=== PATIENT | male | born 1960 | race Caucasian/White ===

== ENCOUNTER 2016-08-27 11:41 | Emergency (ER) | payer OTHER ==
[~2016-08-27] VITALS: Ht 180.3 cm; Wt 84.8 kg
[2016-08-27 11:46] VITALS: BP 144/74
== END 2016-08-27 15:36 | disposition home or self-care (01) ==
LOC: ED 15:13
DX: S82.875A Nondisplaced pilon fracture of left tibia, initial encounter for closed fracture (principal); S82.54XA Nondisplaced fracture of medial malleolus of right tibia, initial encounter for closed fracture; Z88.0 Allergy status to penicillin; X58.XXXA Exposure to other specified factors, initial encounter; Y93.89 Activity, other specified; Y92.89 Other specified places as the place of occurrence of the external cause; Y99.8 Other external cause status
CPT/HCPCS: 29515